=== PATIENT | male | born 1975 | race Caucasian/White ===

== ENCOUNTER 2019-09-03 00:32 | Emergency (ER) | payer BC, OTHER ==
[~2019-09-03] VITALS: Ht 172 cm; Wt 105.0 kg
[~2019-09-03 00:32] MED LIST: CITA40TA19 PO; CYCL10TA9 PO; LAMO100T69 PO; LOVA40TA2 PO; LVT.05T PO; NAPR-243 PO; OMEP40CA36 PO
[2019-09-03] MEDS ORDERED: LACTATED RINGERS 1,000 ML IV ONE (01:02)
--- NOTE | 2019-09-03 01:11 | ED Fall/Injury ---
General Chief Complaint: Trauma-Non Activation Stated Complaint: FELL OFF ROOF 09.02.19,LEFT ANKLE PAIN Source: patient History of Present Illness Date Seen by Provider: Sep 03, 2019 Time Seen by Provider: 00:52 Initial Comments PT ARRIVES VIA POV FROM HOME STATES THAT HE FELL APPROXIMATELY 12 FEET OFF A ROOF THIS MORNING AROUND 10:30, LANDING ON HIS LEFT HEEL STATES HE WAS WORKING BUT IS SELF EMPLOYED WENT TO [facility] AND WAS DX WITH A HEEL FRACTURE AND PLACED IN A WALKING BOOT AND ADVISED TO FOLLOW UP WITH ORTHO 4 STATES GIVEN RX FOR HYDROCODONE 5 MG, AND TOOK A DOSE AT 2130 TONIGHT ALONG WITH 3 T YLENOL. STATES NO RELIEF OF PAIN STATES HE DID NOT HIT HIS HEAD AND NO LOSS OF CONSCIOUSNESS NO NECK OR BACK PAIN NO CHEST OR ABDOMINAL PAIN NO ARM PAIN OR RIGHT LEG PAIN NO HIP PAIN NO KNEE PAIN STATES HIS LEFT TOES TINGLE, OTHERWISE NO OTHER PARESTHESIAS AND NO MOTOR DEFICITS NO LOSS OF BOWEL OR BLADDER FUNCTION C/O SEVERE PAIN TO LEFT HEEL AND ANKLE PCP: [facility] IN [address] Allergies and Home Medications Allergies Coded Allergies: No Known Drug Allergies (Unverified , 12/28/13) Home Medications Citalopram Hydrobromide 40 Mg Tablet, 1 EACH PO DAILY, (Reported) Cyclobenzaprine Hcl 10 Mg Tablet, 1 EACH PO Q8HR Prescribed by: NATHALY TRAMMELL on 12/28/132203 Hydrocodone Bit/Acetaminophen 1 Ea Tab, 1 EA PO Q6H Prescribed by: NATHALY TRAMMELL on 09/03/19 0321 Lamotrigine 100 Mg Tablet, 50 MG PO DAILY, (Reported) Levothyroxine Sodium 50 Mcg Tablet, 1 EACH PO DAILY, (Reported) Lovastatin 40 Mg Tablet, 1 EACH PO DAILY WITH SUPPER, (Reported) Naproxen 500 Mg Tablet, 1 EACH PO TID PRN for PAIN FOR PAIN Prescribed by: NATHALY TRAMMELL on 12/28/132203 Omeprazole 40 Mg Capsule.dr, 40 MG PO DAILY, (Reported) Patient Home Medication List Home Medication List Reviewed: Yes Review of Systems Review of Systems Constitutional: no symptoms reported Eyes: No Symptoms Reported Ears, Nose, Mouth, Throat: no symptoms reported Respiratory: no symptoms reported Cardiovascular: no symptoms reported Gastrointestinal: no symptoms reported Genitourinary: no symptoms reported Musculoskeletal: see HPI Skin: no symptoms reported Psychiatric/Neurological: See HPI Past Gammkwy-Eyzdeb-Bjzgus Hx Past Med/Social Hx: Reviewed and Corrections made Patient Social History Alcohol Use: Past History (12 PACK/DAY-QUIT 2019) Recreational Drug Use: Yes (THC TEEN) Smoking Status: Current Everyday Smoker (1 PPD) Type Used: Cigarettes Recent Foreign Travel: No Contact w/Someone Who Travel: No Seasonal Allergies Seasonal Allergies: No Past Medical History Surgeries: Yes (CARDIAC ABLATION FOR TACHYCARDIA) Cardiac Sleep Apnea Cardiac: Yes (TACHYCARDIA--S/P CARDIAC ABLATION) High Cholesterol, Hypertension, Irregular Heartbeat Neurological: No Reproductive Disorders: No Genitourinary: Yes Prostate Problems Gastrointestinal: Yes Gastroesophageal Reflux Musculoskeletal: Yes (LEFT CALCANEAL FRACTURE 09/02/19) Fractures Endocrine: Yes Hypothyroidsim HEENT: No Cancer: No Psychosocial: Yes Depression Integumentary: No Blood Disorders: No Adverse Reaction/Blood Tranf: No Physical Exam Vital Signs Vital Signs - First Documented 09/03/19 09/03/19 00:52 03:51 Temp 36.7 Pulse 80 Resp 20 B/P (MAP) 137/82 (100) Pulse Ox 98 O2 Delivery Room Air Capillary Refill : Height, Weight, BMI Height: 5'8" Weight: 240lbs. oz. 108.074943zz; BMI Method:Stated General Appearance: WD/WN, other (ANXIOUS ,HYPERVENTILATING, APPEARS TO BE IN PAIN. ) HEENT: PERRL/EOMI, normal ENT inspection Neck: non-tender, full range of motion, supple, normal inspection Cardiovascular: regular rate, rhythm, no murmur Respiratory: chest non-tender, normal breath sounds, no respiratory distress, no accessory muscle use Gastrointestinal: non tender, soft Back: normal inspection, no CVA tenderness, no vertebral tenderness Extremities: other (LEFT ANKLE / FOOT/ HEEL WITH MODERATE SWELLING AND SIGNIFICANT BRUISING AND DIFFUSE, SEVERE TENDERNESS. DISTAL MOTOR/SENSORY/VASCULAR IS INTACT. DIFFICULT TO PALPATE PULSE DUE TO SEVERE PAIN AND SWELLING, BUT FOOT IS PINK AND WARM WITH BRISK CAPILLARY REFILL. ALL OTHER EXTREMITES ARE NORMAL. ) Neurologic/Psychiatric: pictures editor II-XII nml as tested, no motor/sensory deficits, alert, oriented x 3 Skin: normal color, warm/dry, ecchymosis Oliver Coma Score Best Eye Response: (4) Open Spontaneously Best Verbal Response: (5) Oriented Best Motor Response: (6) Obeys Commands [place] Total: 15 Procedures/Interventions Splinting and Joint Reduction : Pre-Proc Neuro Vasc Exam: normal Post-Proc Neuro Vasc Exam: normal Ordered: Crutches Hand-Made Type: orthoglass Splint Application: Short Leg Progress/Results/Core Measures Results/Orders Lab Results Laboratory Tests Test 09/03/19 01:04 09/03/19 01:14 Range/Units White Blood Count 13.5 H 4.3-11.0 10^3/uL Red Blood Count 4.99 4.35-5.85 10^6/uL Hemoglobin 15.7 13.3-17.7 G/DL Hematocrit 44 40-54 % Mean Corpuscular Volume 88 80-99 FL Mean Corpuscular Hemoglobin 32 25-34 PG Mean Corpuscular Hemoglobin Concent 36 32-36 G/DL Red Cell Distribution Width 13.7 10.0-14.5 % Platelet Count 273 130-400 10^3/uL Mean Platelet Volume 9.6 7.4-10.4 FL Neutrophils (%) (Auto) 68 42-75 % Lymphocytes (%) (Auto) 23 12-44 % Monocytes (%) (Auto) 8 0-12 % Eosinophils (%) (Auto) 1 0-10 % Basophils (%) (Auto) 0 0-10 % Neutrophils # (Auto) 9.2 H 1.8-7.8 X 10^3 Lymphocytes # (Auto) 3.1 1.0-4.0 X 10^3 Monocytes # (Auto) 1.0 0.0-1.0 X 10^3 Eosinophils # (Auto) 0.2 0.0-0.3 10^3/uL Basophils # (Auto) 0.0 0.0-0.1 10^3/uL Prothrombin Time 12.6 12.2-14.7 SEC INR Comment 0.9 0.8-1.4 Activated Partial Thromboplast Time 37 H 24-35 SEC Sodium Level 133 L 135-145 MMOL/L Potassium Level 4.0 3.6-5.0 MMOL/L Chloride Level 102 98-107 MMOL/L Carbon Dioxide Level 19 L 21-32 MMOL/L Anion Gap 12 5-14 MMOL/L Blood Urea Nitrogen 12 7-18 MG/DL Creatinine 1.01 0.60-1.30 MG/DL Estimat Glomerular Filtration Rate > 60 BUN/Creatinine Ratio 12 Glucose Level 101 70-105 MG/DL Calcium Level 9.3 8.5-10.1 MG/DL Corrected Calcium 9.0 8.5-10.1 MG/DL Magnesium Level 1.8 1.6-2.4 MG/DL Total Bilirubin 0.5 0.1-1.0 MG/DL Aspartate Amino Transf (AST/SGOT) 13 5-34 U/L Alanine Aminotransferase (ALT/SGPT) 13 0-55 U/L Alkaline Phosphatase 58 40-136 U/L Total Protein 7.5 6.4-8.2 GM/DL Albumin 4.4 3.2-4.5 GM/DL Serum Alcohol < 10 <10 MG/DL Urine Color YELLOW Urine Clarity CLEAR Urine pH 6.0 5-9 Urine Specific [place] <=1.005 1.016-1.022 Urine Protein NEGATIVE NEGATIVE Urine Glucose (UA) NEGATIVE NEGATIVE Urine Ketones NEGATIVE NEGATIVE Urine Nitrite NEGATIVE NEGATIVE Urine Bilirubin NEGATIVE NEGATIVE Urine Urobilinogen 0.2 < = 1.0 MG/DL Urine Leukocyte Esterase NEGATIVE NEGATIVE Urine RBC (Auto) NEGATIVE NEGATIVE Urine RBC NONE /HPF Urine WBC NONE /HPF Urine Squamous Epithelial Cells RARE /HPF Urine Crystals NONE /LPF Urine Bacteria NEGATIVE /HPF Urine Casts NONE /LPF Urine Mucus NEGATIVE /LPF Urine Culture Indicated NO Urine Opiates Screen NEGATIVE NEGATIVE Urine Oxycodone Screen NEGATIVE NEGATIVE Urine Methadone Screen NEGATIVE NEGATIVE Urine Propoxyphene Screen NEGATIVE NEGATIVE Urine Barbiturates Screen NEGATIVE NEGATIVE Ur Tricyclic Antidepressants Screen NEGATIVE NEGATIVE Urine Phencyclidine Screen NEGATIVE NEGATIVE Urine Amphetamines Screen NEGATIVE NEGATIVE Urine Methamphetamines Screen NEGATIVE NEGATIVE Urine Benzodiazepines Screen NEGATIVE NEGATIVE Urine Cocaine Screen NEGATIVE NEGATIVE Urine Cannabinoids Screen NEGATIVE NEGATIVE My Orders Orders - NATHALY TRAMMELL DO Ed Iv/Invasive Line Start (09/03/19 01:02) Monitor-Rhythm Ecg Trace Only (09/03/19 01:02) Ct Cerv/Thoracic/Lumbar Wo (09/03/19 01:02) Ct Extremity Lower Left Wo (09/03/19 01:02) Chest 1 View, Ap/Pa Only (09/03/19 01:02) Pelvis (09/03/19 01:02) Alcohol (09/03/19 01:02) Cbc With Automated Diff (09/03/19 01:02) Comprehensive Metabolic Panel (09/03/19 01:02) Drug Screen Stat (Urine) (09/03/19 01:02) Magnesium (09/03/19 01:02) Protime With Inr (09/03/19 01:02) Partial Thromboplastin Time (09/03/19 01:02) Ua Culture If Indicated (09/03/19 01:02) Ed Iv/Invasive Line Start (09/03/19 01:02) Lactated Ringers (Lr 1000 Ml Iv Solution (09/03/19 01:02) Fentanyl Injection (Sublimaze Injection (09/03/19 01:30) Foot, Left, 3 Views (09/03/19 01:43) Ankle, Left, 3 Views (09/03/19 01:43) Ed Ortho/Other Supplies Order (09/03/19 03:21) Crutches (09/03/19 03:21) Fentanyl Injection (Sublimaze Injection (09/03/19 03:30) Medications Given in ED Current Medications Medications Dose Ordered Sig/Sandra Route Start Time Stop Time Status Last Admin Dose Admin Fentanyl Citrate 100 mcg ONCE ONCE IVP 09/03/19 01:30 09/03/19 01:31 DC 09/03/19 01:23 100 MCG Fentanyl Citrate 100 mcg ONCE ONCE IVP 09/03/19 03:30 09/03/19 03:31 DC 09/03/19 03:31 100 MCG Lactated Ringer's 1,000 ml @ 0 mls/hr Q0M ONCE IV 09/03/19 01:02 09/03/19 01:04 DC 09/03/19 01:07 0 MLS/HR Vital Signs/I&O 09/03/19 09/03/19 00:52 03:51 Temp 36.7 36.5 Pulse 80 78 Resp 20 20 B/P (MAP) 137/82 (100) 113/85 Pulse Ox 98 O2 Delivery Room Air Room Air Progress Progress Note : Progress Note GIVEN FENTANYL FOR PAIN WITH MUCH IMPROVEMENT. Diagnostic Imaging Comments CXR--NO ACUTE PROCESS, PENDING RADIOLOGIST REVIEW PELVIS XRAY--NO ACUTE PROCESS, PENDING RADIOLOGIST REVIEW XRAYS LEFT FOOT AND ANKLE--COMMINUTED CALCANEAL FRACTURE, PENDING RADIOLOGIST REVIEW CT CERVICAL/ THORACIC/ LUMBAR SPINE--NO ACUTE PROCESS, PER [facility] V[place] FA[place] [address]247 CT LEFT LOWER EXTREMITY--SEVERE COMMINUTED FRACTURE OF CALCANEOUS, QUESTIONABLE FRACTURE OF TALUS--PER [facility] VIA FAX AT 9919 Reviewed: Reviewed by Me Departure Impression Primary Impression: S/P FALL FROM ROOF Additional Impression: CLOSED COMMINUTED LEFT CALCANEAL FRACTURE Disposition: HOME, SELF-CARE Condition: Stable Departure-Patient Inst. Referrals: [facility] (PCP) Primary Care Physician ORTHO 4 STATES Patient Instructions: Heel Fracture (DC) Add. Discharge Instructions: ICE TO AREA AT 20 MINUTE INTERVALS WEAR SPLINT AT ALL TIMES ELEVATE FOOT MUCH POSSIBLE USE CRUTCHES AT ALL TIMES--NO WEIGHT BEARING FOLLOW UP WITH ORTHO 4 STATES FOR FURTHER CARE, PREVIOUSLY ARRANGED. All discharge instructions reviewed with patient and/or family. Voiced understanding. Scripts Hydrocodone Bit/Acetaminophen (HYDROcodone/APAP 10/325 TABLET) 1 Ea Tab 1 EA PO Q6H, #20 TAB Prov: NATHALY TRAMMELL DO 09/03/19 NATHALY TRAMMELL DO Sep 03, 2019 01:11
[2019-09-03 01:17] LABS: BASOPHILS % (AUTO) 0 % (0-10); EOSINOPHILS # (AUTO) 0.2 10^3/uL (0.0-0.3); EOSINOPHILS % (AUTO) 1 % (0-10); HEMATOCRIT 44 % (40-54); HEMOGLOBIN 15.7 G/DL (13.3-17.7); LYMPHOCYTES # (AUTO) 3.1 X 10^3 (1.0-4.0); LYMPHOCYTES % (AUTO) 23 % (12-44); MEAN CORPUSCULAR HEMOGLOBIN 32 PG (25-34); MEAN CORPUSCULAR HGB CONC 36 G/DL (32-36); MEAN CORPUSCULAR VOLUME 88 FL (80-99); MEAN PLATELET VOLUME 9.6 FL (7.4-10.4); MONOCYTES % (AUTO) 8 % (0-12); NEUTROPHILS # (AUTO) 9.2 X 10^3 (1.8-7.8); NEUTROPHILS % (AUTO) 68 % (42-75); PLATELET COUNT 273 10^3/uL (130-400); RED CELL DISTRIBUTION WIDTH 13.7 % (10.0-14.5); WHITE BLOOD COUNT 13.5 10^3/uL (4.3-11.0)
[2019-09-03 01:20] LABS: BILIRUBIN,URINE NEGATIVE (NEGATIVE); CLARITY,URINE CLEAR; COLOR,URINE YELLOW; GLUCOSE, URINE (UA) NEGATIVE (NEGATIVE); KETONES,URINE NEGATIVE (NEGATIVE); LEUKOCYTE ESTERASE ,URINE NEGATIVE (NEGATIVE); NITRITE,URINE NEGATIVE (NEGATIVE); PROTEIN,URINE NEGATIVE (NEGATIVE)
[2019-09-03 01:26] LABS: INR 0.9 (0.8-1.4); PROTHROMBIN TIME PATIENT 12.6 SEC (12.2-14.7)
[2019-09-03 01:27] LABS: ALBUMIN 4.4 GM/DL (3.2-4.5); CHLORIDE 102 MMOL/L (98-107); SODIUM 133 MMOL/L (135-145)
[2019-09-03 01:28] LABS: CALCIUM 9.3 MG/DL (8.5-10.1)
[2019-09-03 01:30] LABS: BACTERIA,URINE NEGATIVE /HPF; SQUAMOUS EPITHELIAL CELL,UR RARE /HPF
[2019-09-03 01:30] LABS: GLUCOSE 101 MG/DL (70-105); TOTAL PROTEIN 7.5 GM/DL (6.4-8.2)
[2019-09-03] MEDS ORDERED: fentaNYL INJECTION 100 MCG/2 ML AMP IVP ONE ×2 (01:30→03:30)
[2019-09-03 01:31] LABS: BILIRUBIN,TOTAL 0.5 MG/DL (0.1-1.0); CARBON DIOXIDE 19 MMOL/L (21-32)
[2019-09-03 01:33] LABS: ALKALINE PHOSPHATASE 58 U/L (40-136); CREATININE SERUM 1.01 MG/DL (0.60-1.30); GFR ESTIMATED > 60
[2019-09-03 01:34] LABS: BUN/CREATININE RATIO 12
[2019-09-03 01:36] LABS: ALANINE AMINOTRANSFERASE 13 U/L (0-55); MAGNESIUM 1.8 MG/DL (1.6-2.4)
[2019-09-03 01:41] LABS: AMPHETAMINE SCREEN, URINE NEGATIVE (NEGATIVE); BARBITURATE SCREEN URINE NEGATIVE (NEGATIVE); BENZODIAZEPINES SCREEN URINE NEGATIVE (NEGATIVE); CANNABINOID SCREEN, URINE NEGATIVE (NEGATIVE); COCAINE SCREEN URINE NEGATIVE (NEGATIVE); METHADONE STAT NEGATIVE (NEGATIVE); METHAMPHETAMINE SCREEN URINE S NEGATIVE (NEGATIVE); OPIATE SCREEN URINE NEGATIVE (NEGATIVE); OXYCODONE STAT NEGATIVE (NEGATIVE); PROPOXYPHENE STAT NEGATIVE (NEGATIVE); TRICYCLIC ANTIDEPRESSANTS SCRE NEGATIVE (NEGATIVE)
[2019-09-03] MEDS ORDERED: ACHYD1T PO (03:21)
[2019-09-03 03:51] VITALS: BP 113/85
--- NOTE | 2019-09-03 06:12 | Diagnostic Imaging Report ---
INDICATION: Fall COMPARISON: None FINDINGS: Single view of the pelvis demonstrates no fracture or dislocation. Articular surfaces are age-appropriate. IMPRESSION: Negative pelvis Dictated by: Dictated on workstation # [id number]
--- NOTE | 2019-09-03 06:15 | Diagnostic Imaging Report ---
INDICATION: Fall. COMPARISON: 12/28/2013. FINDINGS: Single view of the chest demonstrates clear lungs bilaterally. The heart is normal. There is no pneumothorax. Osseous structures are normal. IMPRESSION: Negative chest. Dictated by: Dictated on workstation # [id number]
--- NOTE | 2019-09-03 06:38 | Diagnostic Imaging Report ---
INDICATION: Left ankle injury, pain and swelling. COMPARISON: None. FINDINGS: 3 views of the left ankle demonstrate nondisplaced fracture of the calcaneus with intra-articular involvement. The ankle mortise is intact. No foreign body seen. IMPRESSION: Nondisplaced calcaneal fracture. Dictated by: Dictated on workstation # [id number]
--- NOTE | 2019-09-03 06:43 | Diagnostic Imaging Report ---
INDICATION: Left foot injury pain COMPARISON: None. FINDINGS: 3 views of the left foot demonstrate comminuted fracture of the calcaneus without significant displacement. No additional fractures are seen. There is no radiopaque foreign body. IMPRESSION: Comminuted calcaneal fracture. Dictated by: Dictated on workstation # [id number]
--- NOTE | 2019-09-03 07:04 | Diagnostic Imaging Report ---
INDICATION: Status post fall approximately 12 feet, landing on left foot. Denies back and/or neck pain. TECHNIQUE: Noncontrast imaging through the cervical, thoracic and lumbar spine with multiplanar reformatted images. Auto Exposure Controls were utilized during the CT exam to meet ALARA standards for radiation dose reduction. . CORRELATION STUDY: 12/28/2013 FINDINGS: CERVICAL SPINE: Cervical spine alignment is mildly straightened but otherwise anatomic. Vertebral body heights maintained. Disc spaces are preserved. Posterior elements and odontoid intact and in normal alignment. THORACIC SPINE: Thoracic spinal alignment anatomic. Very mild areas of thoracic spondylosis with mild endplate lipping. Thoracic vertebral body heights preserved. No osseous encroachment or narrowing of the neural foramina and/or spinal canal. Posterior elements are intact. LUMBAR SPINE: Lumbar spinal alignment is anatomic. Lumbar vertebral body heights maintained. Disc spaces are preserved. Posterior elements are intact and in normal alignment. There is note made of mild calcification of the abdominal aorta. Scattered coronary artery calcification present. Small hiatal hernia. Overall examination is degraded by some patient motion artifact. IMPRESSION: 1. Negative for acute fracture of the cervical spine. 2. Negative for acute fracture of the thoracic spine. 3. Negative for acute fracture of the lumbar spine. 4. Additional findings as detailed above. This does include coronary artery calcification. A preliminary report was provided by [facility]. Dictated by: Dictated on workstation # [id number]
--- NOTE | 2019-09-03 07:19 | Diagnostic Imaging Report ---
PROCEDURE: CT left lower extremity without contrast. TECHNIQUE: Multiple contiguous axial images were obtained through the left lower extremity without the use of intravenous contrast. Sagittal and coronal reformations were then performed. Auto Exposure Controls were utilized during the CT exam to meet ALARA standards for radiation dose reduction. INDICATION: Status post 12' fall off roof. Landed on left leg. CORRELATION STUDY: None FINDINGS: Severely comminuted fracture through the calcaneus is present. The primary larger fracture has a wide shape with the apex extending through the superior surface near the midpoint of the talocalcaneal joint. Additional lateral limb other Y-shaped fracture exists through the mid posterior body laterally. Multiple additional adjacent fracture fragments are also present. Medially severely comminuted fracture limb extends through the medial portion of the body with significant displacement of the fracture fragment. Multiple additional fracture fragments particularly the medial portion of subtalar joint. There is note made of an accessory ossicle inferior to the medial malleolus. Question nondisplaced fracture of the posterior talar dome and neck of the talus. Extensive associated soft tissue edema is present. IMPRESSION: 1. Severely comminuted fractures through the calcaneus as detailed above. Fracture lines involve and extend through the subtalar joints. 2. Very questionable nondisplaced fracture of the posterior talar dome and neck of the talus. If further evaluation is desired, MRI could be of additional benefit. A preliminary report was provided by [facility]. Dictated by: Dictated on workstation # [id number]
== END 2019-09-03 03:50 | disposition home or self-care (01) ==
LOC: EDUNIT# 00:32 → ER 00:36
DX: S92.002A Unspecified fracture of left calcaneus, initial encounter for closed fracture (principal); I10 Essential (primary) hypertension; E78.00 Pure hypercholesterolemia, unspecified; K21.9 Gastro-esophageal reflux disease without esophagitis; F32.9 Major depressive disorder, single episode, unspecified; E03.9 Hypothyroidism, unspecified; R40.2142 Coma scale, eyes open, spontaneous, at arrival to emergency department; R40.2242 Coma scale, best verbal response, confused conversation, at arrival to emergency department; R40.2362 Coma scale, best motor response, obeys commands, at arrival to emergency department; F17.210 Nicotine dependence, cigarettes, uncomplicated; Z79.890 Hormone replacement therapy; W13.2XXA Fall from, out of or through roof, initial encounter
CPT/HCPCS: 29515; 71045; 72125; 72128; 72131; 72170; 73610; 73630; 73700; 80053; 80306; 81000; 83735; 85025; 85610; 85730; 93041; 99284; G0480; 36415; 80320

== ENCOUNTER → 2019-09-06 | Outpatient (CLI) | payer OTHER ==
[~2019-09-06] MED LIST changes: +ACHYD1T PO
--- NOTE | 2019-09-06 14:44 | Diagnostic Imaging Report ---
PROCEDURE: US left lower extremity venous. TECHNIQUE: Multiple real-time grayscale images were obtained over the left lower extremity in various projections. Additional duplex Doppler and color Doppler images were also obtained. INDICATION: Left leg pain. FINDINGS: Left lower extremity femoropopliteal deep venous system widely patent. There is no deep or superficial thrombus identified. Color flow and waveforms normal. No mass or fluid collection demonstrated. IMPRESSION: Normal negative unilateral left lower extremity venous Doppler and ultrasound exam. Dictated by: Dictated on workstation # [id number]
== END ==
LOC: RAD 12:59
PROVIDERS: ATTEND Orthopaedic Surgery
DX: M79.662 Pain in left lower leg (principal)

== ENCOUNTER → 2019-12-01 | Outpatient (CLI) | payer OTHER ==
--- NOTE | 2019-12-02 10:09 | Diagnostic Imaging Report ---
PROCEDURE: CT left lower extremity without contrast. TECHNIQUE: Multiple contiguous axial images were obtained through the left lower extremity without the use of intravenous contrast. Sagittal and coronal reformations were then performed. Auto Exposure Controls were utilized during the CT exam to meet ALARA standards for radiation dose reduction. INDICATION: Fell off a roof 3 months ago, check for healing. EXAMINATION: Left lower extremity CT from 12/01/2019 FINDINGS: There is a comminuted fracture of the calcaneus with residual lucencies noted consistent with incomplete healing at this time. A few areas of developing sclerosis and callus formation noted. The fracture extends into the posterior subtalar joint. There is marked diffuse disuse osteopenia. The talar dome is grossly unremarkable. There are multiple osseous fragments which appear well-corticated distal to the medial malleolus. Diffuse soft tissue prominence about the ankle consistent with reactive edema. IMPRESSION: 1. Incomplete healing of the comminuted calcaneus fracture. Other findings as above. Dictated by: Dictated on workstation # [id number]
== END ==
LOC: RAD 12:45
PROVIDERS: ATTEND Podiatrist
DX: S92.002D Unspecified fracture of left calcaneus, subsequent encounter for fracture with routine healing (principal); W19.XXXD Unspecified fall, subsequent encounter
CPT/HCPCS: 73700

== ENCOUNTER 2021-01-29 16:39 | Emergency (ER) | payer OTHER ==
[~2021-01-29] VITALS: Ht 172.7 cm; Wt 97.5 kg
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
[2021-01-29] MEDS ORDERED: KETOROLAC 30 MG/ML VIAL IVP ONE (17:00)
[2021-01-29] MEDS ORDERED: fentaNYL INJ 100 MCG/2 ML AMP IVP ONE (17:00)
[2021-01-29 17:01] LABS: BASOPHILS # (AUTO) 0.1 10^3/uL (0.0-0.1); BASOPHILS % (AUTO) 1 % (0-10); EOSINOPHILS # (AUTO) 0.1 10^3/uL (0.0-0.3); EOSINOPHILS % (AUTO) 1 % (0-10); HEMATOCRIT 52 % (40-54); HEMOGLOBIN 18.2 g/dL (13.3-17.7); LYMPHOCYTES # (AUTO) 2.6 10^3/uL (1.0-4.0); LYMPHOCYTES % (AUTO) 19 % (12-44); MEAN CORPUSCULAR HEMOGLOBIN 32 pg (25-34); MEAN CORPUSCULAR HGB CONC 35 g/dL (32-36); MEAN CORPUSCULAR VOLUME 89 fL (80-99); MEAN PLATELET VOLUME 9.5 fL (9.0-12.2); MONOCYTES # (AUTO) 0.6 10^3/uL (0.0-1.0); MONOCYTES % (AUTO) 5 % (0-12); NEUTROPHILS # (AUTO) 10.5 10^3/uL (1.8-7.8); NEUTROPHILS % (AUTO) 75 % (42-75); PLATELET COUNT 279 10^3/uL (130-400); WHITE BLOOD COUNT 14.1 10^3/uL (4.3-11.0)
[2021-01-29] MEDS ORDERED: LACTATED RINGERS 1,000 ML IV SCH (17:15)
[2021-01-29 17:19] LABS: CHLORIDE 103 MMOL/L (98-107); SODIUM 139 MMOL/L (135-145)
[2021-01-29 17:20] LABS: CALCIUM 9.8 MG/DL (8.5-10.1)
[2021-01-29 17:22] LABS: GLUCOSE 81 MG/DL (70-105); TOTAL PROTEIN 8.5 GM/DL (6.4-8.2)
[2021-01-29 17:23] LABS: BILIRUBIN,TOTAL 0.8 MG/DL (0.1-1.0); CARBON DIOXIDE 21 MMOL/L (21-32)
[2021-01-29 17:25] LABS: ALKALINE PHOSPHATASE 65 U/L (40-136); GFR ESTIMATED 92
[2021-01-29 17:26] LABS: BUN/CREATININE RATIO 14
[2021-01-29 17:27] LABS: LYMPHOCYTES % (MANUAL) 19 %; MONOCYTES % (MANUAL) 3 %; NEUTROPHILS % (MANUAL) 78 %; RBC MORPH NORMAL
[2021-01-29 17:28] LABS: ALANINE AMINOTRANSFERASE 19 U/L (0-55)
[2021-01-29] MEDS ORDERED: IOHEXOL 350 MG/ML 100 ML (OMNIPAQUE 350) VIAL IV ONE (17:30)
[2021-01-29] MEDS ORDERED: HOLD METFORMIN - RECEIVED CONTRAST 20 ML VIAL IV SCH (17:30)
[2021-01-29] MEDS ORDERED: NS 100 ML (IVPB) BAG IV ONE (17:30)
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
[2021-01-29 18:20] VITALS: BP 130/87
== END 2021-01-29 18:20 | disposition home or self-care (01) ==
LOC: EDUNIT# 16:39 → ER 16:40
DX: S20.212A Contusion of left front wall of thorax, initial encounter (principal); S14.3XXA Injury of brachial plexus, initial encounter; G47.30 Sleep apnea, unspecified; I10 Essential (primary) hypertension; F32.9 Major depressive disorder, single episode, unspecified; E03.9 Hypothyroidism, unspecified; K21.9 Gastro-esophageal reflux disease without esophagitis; E78.00 Pure hypercholesterolemia, unspecified; Z79.899 Other long term (current) drug therapy; Z79.890 Hormone replacement therapy; V89.2XXA Person injured in unspecified motor-vehicle accident, traffic, initial encounter
CPT/HCPCS: 36415; 70450; 71260; 72125; 80053; 84484; 85007; 85027; 85610; 93005

== ENCOUNTER 2021-09-29 09:18 | Emergency (ER) | payer BC ==
[~2021-09-29] VITALS: Ht 172 cm; Wt 104.0 kg
--- NOTE | 2021-09-29 10:30 | Diagnostic Imaging Report ---
HISTORY: Right wrist pain and swelling after injury TECHNIQUE: 3 views of the right wrist COMPARISON: None FINDINGS: There are severe degenerative changes in the radiocarpal joint. There is fragmentation, appears to be chronic fracture of the scaphoid, possible old osteonecrosis. A 5th metacarpal base fracture is again seen as described on the hand radiograph report. There are bony fragments posterior to the wrist, which appear to be chronic. IMPRESSION: 1. 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 2. Nondisplaced intra-articular fracture of the right 5th metacarpal base as seen on the hand radiographs. Dictated by: Dictated on workstation # [id number]
--- NOTE | 2021-09-29 10:31 | Diagnostic Imaging Report ---
HISTORY: Right hand pain and swelling, injury TECHNIQUE: 3 views of the right hand COMPARISON: None FINDINGS: There is a nondisplaced fracture at the base of the right 5th metacarpal extending to the articular surface. There is old posttraumatic deformity of the right 5th metacarpal head and neck. There is a fracture of the 4th finger distal phalangeal tuft which appears to be chronic. Additional wrist findings are described in a separate report. IMPRESSION: 1. Nondisplaced intra-articular fracture at the base of the right 5th metacarpal. There is old posttraumatic deformity of the distal metacarpal. 2. Fracture of the right 4th finger distal phalangeal tuft appears to be chronic. Please correlate with point tenderness. 3. Wrist findings are reported separately. Dictated by: Dictated on workstation # [id number]
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
[2021-09-29 11:48] VITALS: BP 113/62
== END 2021-09-29 11:50 | disposition home or self-care (01) ==
LOC: EDUNIT# 09:18 → ER 09:21
DX: S62.346A Nondisplaced fracture of base of fifth metacarpal bone, right hand, initial encounter for closed fracture (principal); S62.634D Displaced fracture of distal phalanx of right ring finger, subsequent encounter for fracture with routine healing; F17.210 Nicotine dependence, cigarettes, uncomplicated; Z28.310 Unvaccinated for COVID-19; X50.9XXA Other and unspecified overexertion or strenuous movements or postures, initial encounter
CPT/HCPCS: 29125; 73110; 73130

== ENCOUNTER 2022-02-21 00:10 | Emergency (ER) | payer BC ==
[~2022-02-21] VITALS: Ht 172.7 cm; Wt 100.0 kg
[2022-02-21] MEDS ORDERED: morphine INJ 10 MG/ML 1ML (SYR OR VIAL) IVP STA (01:27)
--- NOTE | 2022-02-21 04:57 | Diagnostic Imaging Report ---
PROCEDURE: CT chest and abdomen without contrast. TECHNIQUE: Axial images were obtained from the thoracic inlet through the iliac crest without the administration of intravenous contrast. Auto Exposure Controls were utilized during the CT exam to meet ALARA standards for radiation dose reduction. INDICATION: Rib injury from a fall, right upper quadrant pain Lungs are clear. There are no effusions or pneumothoraces. There are no displaced rib fractures. There is mild calcific coronary atherosclerosis. Liver is unremarkable. Gallbladder appears normal. Gallbladder appears normal. Pancreas appears normal. Spleen appears normal. Kidneys and adrenals appear normal. There is aortic atherosclerosis. The appendix is normal. Visualized portions of large and small bowel appear normal. There is no intraperitoneal free air. There is minimal spondylosis in the thoracic spine. There are no compression fractures seen. IMPRESSION: Atherosclerosis. No acute abnormalities seen. Dictated by: Dictated on workstation # [id number]
[2022-02-21] MEDS ORDERED: oxyCODONE/APAP 5/325MG (PERCOCET 5) TABLET PO ONE (05:00)
[2022-02-21] MEDS ORDERED: ACHD5005 PO (05:07)
--- NOTE | 2022-02-21 05:07 | ED Back Pain ---
General Chief Complaint: Back Problems Stated Complaint: FALL 2 WKS AGO,BACK PAIN Nursing Triage Note: PT TO RM 5 VIA WC W C/O BACK PAIN THAT WORSENED AT 2240 ON 02/20/22 WHEN HE COUGHED AND FELT SOMETHING POP. PT REPORTS APPROX 1 WK AGO HE FELL IN THE SHOWER AND HIT HIS BACK ON SHOWER CHAIR, PAIN WAS TOLERABLE UNTIL HE FELT SOMETHING POP. PT A&OX4. Source of Information: Patient Exam Limitations: No Limitations History of Present Illness Date Seen by Provider: Feb 21, 2022 Allergies and Home Medications Allergies Coded Allergies: No Known Drug Allergies (Unverified , 12/28/13) Patient Home Medication List Citalopram Hydrobromide (Celexa) 40 Mg Tablet, 1 EACH PO DAILY, (Reported) Entered as Reported by: CARMINA TERRAZAS on 12/28/132002 Cyclobenzaprine Hcl (Cyclobenzaprine Hcl) 10 Mg Tablet, 1 EACH PO Q8HR Prescribed by: NATHALY TRAMMELL on 12/28/132203 Hydrocodone Bit/Acetaminophen (HYDROcodone/APAP 10/325 TABLET) 1 Ea Tab, 1 EA PO Q6H Prescribed by: NATHALY TRAMMELL on 09/03/19 0321 Lamotrigine (Lamictal) 100 Mg Tablet, 50 MG PO DAILY, (Reported) Entered as Reported by: CARMINA TERRAZAS on 12/28/132002 Levothyroxine Sodium (Levothyroxine 50 Mcg Tab) 50 Mcg Tablet, 1 EACH PO DAILY, (Reported) Entered as Reported by: CARMINA TERRAZAS on 12/28/132002 Lovastatin (Lovastatin 40 Mg) 40 Mg Tablet, 1 EACH PO DAILY WITH SUPPER, (Reported) Entered as Reported by: CARMINA TERRAZAS on 12/28/132002 Naproxen (Naprosyn) 500 Mg Tablet, 1 EACH PO TID PRN for PAIN Prescribed by: NATHALY TRAMMELL on 12/28/132203 Omeprazole (Omeprazole) 40 Mg Capsule.dr, 40 MG PO DAILY, (Reported) Entered as Reported by: CARMINA TERRAZAS on 12/28/132002 Past Uymbtjq-Qerzuy-Zrygbn Hx Patient Social History Tobacco Use?: Yes Tobacco type used: Cigarettes Smoking Status: Current Everyday Smoker Use of E-Cig and/or Vaping dev: No Substance use?: No Alcohol Use?: Yes Alcohol Frequency: Once in a while Immunizations Up To Date Tetanus Booster (TDap): Less than 5yrs Influenza Vaccine Up-to-Date: No; Not Current Seasonal Allergies Seasonal Allergies: No Past Medical History Surgeries: Yes (CARDIAC ABLATION FOR TACHYCARDIA) Cardiac Respiratory: Yes Sleep Apnea Cardiac: Yes (TACHYCARDIA--S/P CARDIAC ABLATION) High Cholesterol, Hypertension, Irregular Heartbeat Neurological: No Reproductive Disorders: No Genitourinary: Yes Prostate Problems Gastrointestinal: Yes Gastroesophageal Reflux Musculoskeletal: Yes (LEFT CALCANEAL FRACTURE 09/02/19) Fractures Endocrine: Yes Hypothyroidsim HEENT: No Cancer: No Psychosocial: Yes Depression Integumentary: No Blood Disorders: No Adverse Reaction/Blood Tranf: No Physical Exam Vital Signs Vital Signs - First Documented 02/21/22 00:43 Temp 36.8 Pulse 115 Resp 26 B/P (MAP) 135/75 (95) Pulse Ox 96 O2 Delivery Room Air Capillary Refill : Less Than 3 Seconds Height, Weight, BMI Height: 5'8" Weight: 240lbs. oz. 108.118121gy; 33.00 BMI Method:Stated Progress/Results/Core Measures Results/Orders My Orders Orders - MICHAEL BARNHART MD Ed Iv/Invasive Line Start (02/21/22 01:25) Ct Chest/Abdomen Wo (02/21/22 01:25) Morphine Injection (Morphine Injection (02/21/22 01:27) Oxycodone/Apap 5/325mg Tablet (Percocet (02/21/22 05:00) Vital Signs/I&O 02/21/22 00:43 Temp 36.8 Pulse 115 Resp 26 B/P (MAP) 135/75 (95) Pulse Ox 96 O2 Delivery Room Air Blood Pressure Mean: 95 Departure Impression Primary Impression: Multiple rib fractures Qualified Codes: S22.41XA - Multiple fractures of ribs, right side, initial encounter for closed fracture Additional Impression: Fall on same level Qualified Codes: W18.30XA - Fall on same level, unspecified, initial encounter Disposition: 01 HOME, SELF-CARE Condition: Improved Departure-Patient Inst. Decision time for Depature: 05:03 Referrals: [facility] (PCP) Primary Care Physician [facility] (Family) Primary Care Physician Patient Instructions: Rib Fractures in Adults Add. Discharge Instructions: You have multiple rib fractures in the area where you are experiencing the most pain. It is important to control your pain so that you can exercise deep breathing. Use hydrocodone as prescribed to control your pain. Avoid use of NSAID m edications such as ibuprofen or naproxen as these medications may delay bone healing. Hydrocodone may cause drowsiness so do not drive or operate machinery while on hydrocodone. Hydrocodone may also cause constipation, so you may benefit from using a stool softener such as Colace while taking hydrocodone. In addition to hydrocodone, consider using nvvs-ruf-ujphgub lidocaine patches over the area of greatest pain. Exercise deep breathing often while awake, with a goal of 10 deep breaths per hour. Drink plenty of clear liquids to stay well-hydrated. Gradually increase level of activity as pain allows. All discharge instructions reviewed with patient and/or family. Voiced understanding. Scripts Hydrocodone/Acetaminophen (Hydrocodone-Acetamin 5-325 mg) 5 Mg-325 Mg Tablet 1-2 TAB PO Q4H PRN for PAIN-MODERATE (5-7), #30 TAB For multiple rib fractures. Prov: MICHAEL BARNHART MD 02/21/22 MICHAEL BARNHART MD Feb 21, 2022 05:07
[2022-02-21 05:27] VITALS: BP 119/82
== END 2022-02-21 05:27 | disposition home or self-care (01) ==
LOC: EDUNIT# 00:10 → ER 00:13
DX: S22.41XA Multiple fractures of ribs, right side, initial encounter for closed fracture (principal); F17.210 Nicotine dependence, cigarettes, uncomplicated; Z28.310 Unvaccinated for COVID-19; W18.2XXA Fall in (into) shower or empty bathtub, initial encounter; Y93.E1 Activity, personal bathing and showering; Y92.003 Bedroom of unspecified non-institutional (private) residence as the place of occurrence of the external cause
CPT/HCPCS: 71250; 74150

== ENCOUNTER 2022-11-15 10:01 | Emergency (ER) | payer BC ==
[~2022-11-15 10:01] MED LIST changes: +ACHD5005 PO
[2022-11-15 10:35] LABS: BASOPHILS # (AUTO) 0.1 10^3/uL (0.0-0.1); BASOPHILS % (AUTO) 1 % (0-10); EOSINOPHILS # (AUTO) 0.1 10^3/uL (0.0-0.3); EOSINOPHILS % (AUTO) 1 % (0-10); HEMATOCRIT 49 % (40-54); HEMOGLOBIN 17.5 g/dL (13.3-17.7); LYMPHOCYTES # (AUTO) 2.5 10^3/uL (1.0-4.0); LYMPHOCYTES % (AUTO) 26 % (12-44); MEAN CORPUSCULAR HEMOGLOBIN 32 pg (25-34); MEAN CORPUSCULAR HGB CONC 36 g/dL (32-36); MEAN CORPUSCULAR VOLUME 91 fL (80-99); MEAN PLATELET VOLUME 9.4 fL (9.0-12.2); MONOCYTES # (AUTO) 0.6 10^3/uL (0.0-1.0); MONOCYTES % (AUTO) 6 % (0-12); NEUTROPHILS # (AUTO) 6.2 10^3/uL (1.8-7.8); NEUTROPHILS % (AUTO) 65 % (42-75); PLATELET COUNT 262 10^3/uL (130-400); WHITE BLOOD COUNT 9.5 10^3/uL (4.3-11.0)
[2022-11-15] MEDS ORDERED: HOLD METFORMIN - RECEIVED CONTRAST 20 ML VIAL IV SCH (11:00)
[2022-11-15] MEDS ORDERED: IOHEXOL 350 MG/ML 100 ML (OMNIPAQUE 350) VIAL IV ONE (11:00)
[2022-11-15] MEDS ORDERED: NS 100 ML (IVPB) BAG IV ONE (11:00)
[2022-11-15 11:08] LABS: ALBUMIN 4.6 GM/DL (3.2-4.5); CHLORIDE 103 MMOL/L (98-107); POTASSIUM 3.8 MMOL/L (3.6-5.0); SODIUM 136 MMOL/L (135-145)
[2022-11-15 11:09] LABS: AMYLASE 35 U/L (25-125); CALCIUM 8.9 MG/DL (8.5-10.1)
[2022-11-15 11:11] LABS: GLUCOSE 96 MG/DL (70-105); TOTAL PROTEIN 7.9 GM/DL (6.4-8.2)
[2022-11-15 11:12] LABS: CARBON DIOXIDE 19 MMOL/L (21-32)
--- NOTE | 2022-11-15 11:12 | Diagnostic Imaging Report ---
PROCEDURE: CT abdomen and pelvis with contrast. TECHNIQUE: Multiple contiguous axial images were obtained through the abdomen and pelvis after administration of intravenous contrast. Auto Exposure Controls were utilized during the CT exam to meet ALARA standards for radiation dose reduction. All CT scans use one or more of the following dose optimizing techniques: automated exposure control, MA and/or KvP adjustment based on patient size and exam type or iterative reconstruction. INDICATION: Abdominal pressure for 3 to 4 days with diarrhea. FINDINGS: Lung bases are clear. Liver does show some generalized low attenuation consistent with hepatic steatosis. No liver mass is identified. Gallbladder is unremarkable. There is no biliary ductal dilatation. Pancreas and spleen are unremarkable. No adrenal mass is identified. Kidneys are unremarkable. There is no calculi or hydronephrosis. Aorta is calcified but nonaneurysmal. Bowel loops appear to be nonobstructed. Appendix is visualized and unremarkable. No free fluid or fluid collection is identified. No definite inflammatory changes are seen. There is a small fat-containing umbilical hernia. There are bilateral fat-containing inguinal hernias. The bladder and prostate are unremarkable. IMPRESSION: 1. Hepatic steatosis. 2. Fat-containing umbilical and bilateral inguinal hernias. 3. No acute feature in the abdomen or pelvis is identified. Dictated by: Dictated on workstation # [id number]
[2022-11-15 11:13] LABS: BILIRUBIN,TOTAL 0.9 MG/DL (0.1-1.0)
[2022-11-15 11:13] LABS: CLARITY,URINE CLEAR; COLOR,URINE YELLOW
[2022-11-15 11:14] LABS: BACTERIA,URINE NEGATIVE /HPF; BILIRUBIN,URINE NEGATIVE (NEGATIVE); GLUCOSE, URINE (UA) NEGATIVE (NEGATIVE); KETONES,URINE NEGATIVE (NEGATIVE); LEUKOCYTE ESTERASE ,URINE NEGATIVE (NEGATIVE); NITRITE,URINE NEGATIVE (NEGATIVE); PROTEIN,URINE NEGATIVE (NEGATIVE)
[2022-11-15 11:14] LABS: ALKALINE PHOSPHATASE 62 U/L (40-136); CREATININE SERUM 0.85 MG/DL (0.60-1.30); GFR ESTIMATED 109
[2022-11-15 11:15] LABS: BUN/CREATININE RATIO 13
[2022-11-15 11:17] LABS: ALANINE AMINOTRANSFERASE 38 U/L (0-55); MAGNESIUM 2.1 MG/DL (1.6-2.4)
--- NOTE | 2022-11-15 11:17 | ED Abdominal Pain ---
General Chief Complaint: Abdominal/GI Problems Stated Complaint: POSSIBLE BOWEL OBSTRUCTION Nursing Triage Note: Patient c/o all over Abd. pressure x 3-4 days with diarrhea. Patient states he has had diarrhea x 2-3 weeks. Patient states the pressure in his Abd. increases with food intake. Patient states he has blood when he wipes, but states he has a Hx. of hemorroids. Patient denies any fevers. Patient denies any vomiting. Patient denies any Hx. of colitis or diverticulitis. Source of Information: Patient History of Present Illness Date Seen by Provider: Nov 15, 2022 Allergies and Home Medications Allergies Coded Allergies: No Known Drug Allergies (Unverified , 12/28/13) Patient Home Medication List Citalopram Hydrobromide (Celexa) 40 Mg Tablet, 1 EACH PO DAILY, (Reported) Entered as Reported by: CARMINA TERRAZAS on 12/28/132002 Cyclobenzaprine Hcl (Cyclobenzaprine Hcl) 10 Mg Tablet, 1 EACH PO Q8HR Prescribed by: NATHALY TRAMMELL on 12/28/132203 Hydrocodone Bit/Acetaminophen (HYDROcodone/APAP 10/325 TABLET) 1 Ea Tab, 1 EA PO Q6H Prescribed by: NATHALY TRAMMELL on 09/03/19 0321 Hydrocodone/Acetaminophen (Hydrocodone-Acetamin 5-325 mg) 5 Mg-325 Mg Tablet, 1- 2 TAB PO Q4H PRN for PAIN-MODERATE (5-7) Prescribed by: MICHAEL DENT on 02/21/22 0507 Lamotrigine (Lamictal) 100 Mg Tablet, 50 MG PO DAILY, (Reported) Entered as Reported by: CARMINA TERRAZAS on 12/28/132002 Levothyroxine Sodium (Levothyroxine 50 Mcg Tab) 50 Mcg Tablet, 1 EACH PO DAILY, (Reported) Entered as Reported by: CARMINA TERRAZAS on 12/28/132002 Lovastatin (Lovastatin 40 Mg) 40 Mg Tablet, 1 EACH PO DAILY WITH SUPPER, (Repor macho) Entered as Reported by: CARMINA TERRAZAS on 12/28/132002 Naproxen (Naprosyn) 500 Mg Tablet, 1 EACH PO TID PRN for PAIN Prescribed by: NATHALY TRAMMELL on 12/28/132203 Omeprazole (Omeprazole) 40 Mg Capsule.dr, 40 MG PO DAILY, (Reported) Entered as Reported by: CARMINA TERRAZAS on 12/28/132002 Past Qqynwxu-Olwnvn-Hwklrx Hx Patient Social History Tobacco Use?: Yes Tobacco type used: Cigarettes Smoking Status: Current Everyday Smoker Use of E-Cig and/or Vaping dev: No Substance use?: No Alcohol Use?: Yes Alcohol type: Beer Alcohol Frequency: Daily Immunizations Up To Date Tetanus Booster (TDap): Less than 5yrs Influenza Vaccine Up-to-Date: No; Not Current Seasonal Allergies Seasonal Allergies: No Past Medical History Surgeries: Yes (CARDIAC ABLATION FOR TACHYCARDIA) Cardiac Respiratory: Yes Sleep Apnea Cardiac: Yes (TACHYCARDIA--S/P CARDIAC ABLATION) High Cholesterol, Hypertension, Irregular Heartbeat Neurological: No Reproductive Disorders: No Genitourinary: Yes Prostate Problems Gastrointestinal: Yes Gastroesophageal Reflux Musculoskeletal: Yes (LEFT CALCANEAL FRACTURE 09/02/19) Fractures Endocrine: Yes Hypothyroidsim HEENT: No Cancer: No Psychosocial: Yes Depression Integumentary: No Blood Disorders: No Adverse Reaction/Blood Tranf: No Physical Exam Vital Signs Vital Signs - First Documented 11/15/22 10:08 Temp 37.0 Pulse 87 Resp 16 B/P (MAP) 139/100 (113) O2 Delivery Room Air Capillary Refill : Height/Weight/BMI Height: 5'8" Weight: 240lbs. oz. 108.093475ob; 33.00 BMI Method:Stated Progress/Results/Core Measures Results/Orders Lab Results Laboratory Tests Test 11/15/22 10:25 11/15/22 10:48 Range/Units White Blood Count 9.5 4.3-11.0 10^3/uL Red Blood Count 5.43 4.30-5.52 10^6/uL Hemoglobin 17.5 13.3-17.7 g/dL Hematocrit 49 40-54 % Mean Corpuscular Volume 91 80-99 fL Mean Corpuscular Hemoglobin 32 25-34 pg Mean Corpuscular Hemoglobin Concent 36 32-36 g/dL Red Cell Distribution Width 12.8 10.0-14.5 % Platelet Count 262 130-400 10^3/uL Mean Platelet Volume 9.4 9.0-12.2 fL Immature Granulocyte % (Auto) 1 % Neutrophils (%) (Auto) 65 42-75 % Lymphocytes (%) (Auto) 26 12-44 % Monocytes (%) (Auto) 6 0-12 % Eosinophils (%) (Auto) 1 0-10 % Basophils (%) (Auto) 1 0-10 % Neutrophils # (Auto) 6.2 1.8-7.8 10^3/uL Lymphocytes # (Auto) 2.5 1.0-4.0 10^3/uL Monocytes # (Auto) 0.6 0.0-1.0 10^3/uL Eosinophils # (Auto) 0.1 0.0-0.3 10^3/uL Basophils # (Auto) 0.1 0.0-0.1 10^3/uL Immature Granulocyte # (Auto) 0.1 0.0-0.1 10^3/uL Sodium Level 136 135-145 MMOL/L Potassium Level 3.8 3.6-5.0 MMOL/L Chloride Level 103 98-107 MMOL/L Carbon Dioxide Level 19 L 21-32 MMOL/L Anion Gap 14 5-14 MMOL/L Blood Urea Nitrogen 11 7-18 MG/DL Creatinine 0.85 0.60-1.30 MG/DL Estimat Glomerular Filtration Rate 109 BUN/Creatinine Ratio 13 Glucose Level 96 70-105 MG/DL Calcium Level 8.9 8.5-10.1 MG/DL Corrected Calcium 8.5-10.1 MG/DL Magnesium Level 2.1 1.6-2.4 MG/DL Total Bilirubin 0.9 0.1-1.0 MG/DL Aspartate Amino Transf (AST/SGOT) 26 5-34 U/L Alanine Aminotransferase (ALT/SGPT) 38 0-55 U/L Alkaline Phosphatase 62 40-136 U/L Total Protein 7.9 6.4-8.2 GM/DL Albumin 4.6 H 3.2-4.5 GM/DL Amylase Level 35 25-125 U/L Lipase 27 8-78 U/L Urine Color YELLOW Urine Clarity CLEAR Urine pH 5.0 5-9 Urine Specific [place] <=1.005 1.016-1.022 Urine Protein NEGATIVE NEGATIVE Urine Glucose (UA) NEGATIVE NEGATIVE Urine Ketones NEGATIVE NEGATIVE Urine Nitrite NEGATIVE NEGATIVE Urine Bilirubin NEGATIVE NEGATIVE Urine Urobilinogen 0.2 < = 1.0 MG/DL Urine Leukocyte Esterase NEGATIVE NEGATIVE Urine RBC (Auto) TRACE H NEGATIVE Urine RBC NONE /HPF Urine WBC NONE /HPF Urine Crystals NONE /LPF Urine Bacteria NEGATIVE /HPF Urine Casts NONE /LPF Urine Mucus NEGATIVE /LPF Urine Culture Indicated NO My Orders Orders - NATHALY TRAMMELL DO Ed Iv/Invasive Line Start (11/15/22 10:10) Monitor-Rhythm Ecg Trace Only (11/15/22 10:10) Amylase (11/15/22 10:10) Cbc With Automated Diff (11/15/22 10:10) Comprehensive Metabolic Panel (11/15/22 10:10) Lipase (11/15/22 10:10) Magnesium (11/15/22 10:10) Ua Culture If Indicated (11/15/22 10:10) Ed Iv/Invasive Line Start (11/15/22 10:10) Ct Abdomen/Pelvis W (11/15/22 10:17) Iohexol Injection (Omnipaque 350 Mg/Ml 1 (11/15/22 11:00) Received Contrast (Hold Metformin- Contr (11/15/22 11:00) Ns (Ivpb) 100 Ml (Sodium Chloride 0.9% 1 (11/15/22 11:00) Medications Given in ED Current Medications Medications Dose Ordered Sig/Sandra Route Start Time Stop Time Status Last Admin Dose Admin Iohexol 100 ml ONCE ONCE IV 11/15/22 11:00 11/15/22 11:02 DC 11/15/22 11:06 80 ML Sodium Chloride 100 ml ONCE ONCE IV 11/15/22 11:00 11/15/22 11:02 DC 11/15/22 11:06 80 ML Vital Signs/I&O 11/15/22 10:08 Temp 37.0 Pulse 87 Resp 16 B/P (MAP) 139/100 (113) O2 Delivery Room Air Blood Pressure Mean: [address] ABDOMEN/PELVIS --PER RADIOLOGIST REPORT AT 1117 Reviewed: Reviewed by Me Departure Impression Primary Impression: Constipation Additional Impression: Hemorrhoids Disposition: HOME, SELF-CARE Condition: Stable Departure-Patient Inst. Decision time for Depature: 11:25 Referrals: [facility] (PCP/Family) Primary Care Physician Patient Instructions: Hemorrhoids, Constipation, Adult (DC) Add. Discharge Instructions: INCREASE YOUR FLUID TAKE AND INCREASE YOUR FIBER FOLLOW UP WITH YOUR DR IN 3-4 DAYS IF NO BETTER All discharge instructions reviewed with patient and/or family. Voiced understanding. Scripts Hydrocortisone Acetate (Proctocort) 30 Mg Supp.rect 30 MG RC PRN, #10 SUPP.RECT Prov: NATHALY TRAMMELL DO 11/15/22 Hydrocortisone (Proctocort) 1 % Cream..g. 28.4 GM TP BID, #1 TUBE Prov: NATHALY TRAMMELL DO 11/15/22 Polyethylene Glycol 3350 (Miralax) 17 Gram Powd.pack 17 GM PO UD, #1 EACH MIX DIRECTED, THEN TAKE 1 DOSE EVERY 1-2 HOURS UNTIL YOU HAVE A BM, THEN USE ONCE A DAY EVERY DAY Prov: NATHALY TRAMMELL DO 11/15/22 NATHALY TRAMMELL DO Nov 15, 2022 11:17
[2022-11-15 11:18] LABS: LIPASE 27 U/L (8-78)
[2022-11-15] MEDS ORDERED: POLY17PO6 PO (11:31)
[2022-11-15] MEDS ORDERED: HYDR30SU6 RC (11:31)
[2022-11-15] MEDS ORDERED: HYDR28.336 TP (11:31)
[2022-11-15] MEDS ORDERED: KETOROLAC INJ 30 MG/ML VIAL IVP ONE (11:45)
[2022-11-15 12:02] VITALS: BP 145/88
== END 2022-11-15 12:02 | disposition home or self-care (01) ==
LOC: EDUNIT# 10:01 → ER 10:03
DX: K59.00 Constipation, unspecified (principal); K64.9 Unspecified hemorrhoids; F17.210 Nicotine dependence, cigarettes, uncomplicated; Z28.310 Unvaccinated for COVID-19
CPT/HCPCS: 36415; 74177; 80053; 81000; 82150; 83690; 83735; 85025; 93041